=== PATIENT | male | born 1985 | race Caucasian/White ===

== ENCOUNTER 2018-12-11 08:22 | Emergency (ER) | payer SELFPAY ==
[2018-12-11 08:28] VITALS: BMI 38.0
--- NOTE | 2018-12-11 08:46 | PDOC ---
History of Present Illness - General Chief Complaint: Sore Throat Stated Complaint: SORE THROAT Time Seen by Provider: 12/11/18 08:28 History Source: Patient (Patient walked in complaining of few days of swelling on the right side of the neck for few days. 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, [employer], smokes Marijuana x 3 /day .) Exam Limitations: No Limitations - History of Present Illness Is this a multiple visit Asthma Patient?: No Timing/Duration: other (Few days) Severity: mild, moderate Associated Symptoms: reports: cough Aspirin Received prior to arrival: Yes: no aspirin today Past History - Travel Traveled outside of the country in the last 30 days: No Close contact w/someone who was outside of country & ill: No - Past Medical History Allergies/Adverse Reactions: Allergies Allergy/AdvReac Type Severity Reaction Status Date / Time No Known Allergies Allergy Verified 12/11/18 08:24 Home Medications: Ambulatory Orders Amoxicillin/Potassium Clav [Augmentin 875-125 Tablet] 1 each PO BID #14 tablet 12/11/18 COPD: No Other medical history: Denied any significant PMH. Did not see an MD for at least 8 years. - Family Disease History Family Disease History: Other: Father (Pancreas Cancer) - Suicide/Smoking/Psychosocial Hx Smoking History: Never smoked Have you smoked in the past 12 months: Yes Number of Cigarettes Smoked Daily: 20 'Breaking Loose' booklet given: 11/06/13 Hx Alcohol Use: No Drug/Substance Use Hx: Yes (marijuana) Review of Systems - Review of Systems Able to Perform ROS?: Yes Is the patient limited Spanish proficient: Yes Constitutional: Yes: Symptoms Reported, Malaise HEENTM: Yes: Symptoms Reported, See HPI, Other (Swelling on the right side of the neck) Respiratory: Yes: Cough Cardiac (ROS): No: Symptoms Reported, See HPI, Chest Pain, Edema, Irregular Heart Rate, Lightheadedness, Palpitations, Syncope, Chest Tightness, Other ABD/GI: No: Symptoms Reported, See HPI, Abdominal Distended, Abd. Pain w/ defecation, Blood Streaked Bowels, Constipated, Diarrhea, Difficulty Swallowing , Nausea, Poor Appetite, Poor Fluid Intake, Rectal Bleeding, Vomiting, Indigestion, Abdominal cramping, Tarry Stools, Other All Other Systems: Reviewed and Negative *Physical Exam - Vital Signs Last Vital Signs Temp Pulse Resp BP Pulse Ox 98.1 F 79 18 142/98 100 12/11/18 08:23 12/11/18 08:23 12/11/18 08:23 12/11/18 08:23 12/11/18 08:23 - Physical Exam General Appearance: Yes: Nourished, Appropriately Dressed, Mild Distress HEENT: positive: JACOB, Tonsillar Erythema (Mild erythema , no exudate). 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 NML intact, Fully Oriented, Alert, Normal Mood/ Affect ED Treatment Course - LABORATORY CBC & Chemistry Diagram: 12/11/18 09:00 12/11/18 09:00 - Consult/PCP Case discussed with consulting physician: Jonathan Haji Medical Decision Making - Medical Decision Making Based on initial presentation, suspicion for a mass, vs adenopathy, blood work , immaging ordered US reported septated mass CT ordered Discussed with dr Evangelista Called Interventional Radiologist Hospitalist paged 12/11/18 11:30 12/11/18 12:[address] Haji he gave two options of care for this patient care - To be transfered to [facility] , interventional radiologist & atbc -To start iv atbc here and out patient and to see the patient in the office tomorrow Patient refused to be transfered to [facility] by ambulance, agreed to plan 2 to take atbc and to follow with Dr Haji in the office *DC/Admit/Observation/Transfer Diagnosis at time of Disposition: Mass in neck, Adenopathy, cervical - Discharge Dispostion Disposition: HOME Condition at time of disposition: Stable Decision to Admit order: No - Prescriptions Prescriptions: Amoxicillin/Potassium Clav [Augmentin 875-125 Tablet] 1 each PO BID #14 tablet - Referrals Referrals: Jonathan Haji MD [Staff Physician] - - Patient Instructions Additional Instructions: Take antibiotics daily, See Dr Haji in the office tomorrow at 12 noon as discussed Return to ER if fever, chills , trouble breathing - Post Discharge Activity
[2018-12-11 09:31] LABS: BASO % 0.5 % (0-2.0); EOS % 2.6 % (0-4.5); HEMATOCRIT 47.8 % (35.4-49); LYMPH % 13.4 % (8-40); MCH 30.7 pg (25.7-33.7); MCHC 33.4 g/dl (32.0-35.9); MEAN CELL VOLUME 91.9 fl (80-96); MEAN PLT VOLUME 7.8 fl (7.5-11.1); NEUT % 77.5 % (42.8-82.8); PLATELET COUNT 325 K/MM3 (134-434); RBC 5.21 M/mm3 (4.00-5.60); WHITE BLOOD COUNT 15.6 K/mm3 (4.0-10.8)
[2018-12-11] MEDS ORDERED: SODIUM CHLORIDE 1,000 ML IV SCH (10:45)
[2018-12-11 11:20] LABS: ALBUMIN 4.1 g/dl (3.4-5.0); BLOOD UREA NITROGEN 15.9 mg/dL (7-18); CALCIUM 9.4 mg/dL (8.5-10.1); CREATININE 0.8 mg/dL (0.55-1.3); POTASSIUM 4.1 mmol/L (3.5-5.1); TOT PROT 7.6 g/dl (6.4-8.2)
[2018-12-11] MEDS ORDERED: CEFTRIAXONE 1,000 MG in DEXTROSE 5%-WATER - 50 ML IVPB ONE (12:03)
[2018-12-11] MEDS ORDERED: cefTRIAXone SODIUM 1 GM VIAL ONE (12:05)
[2018-12-11 12:06] VITALS: BP 136/92; PULSE 74; TEMP 98.3
== END 2018-12-11 12:45 | disposition home or self-care (01) ==
LOC: FER 08:22
PROC: 3E03329 Introduction of Other Anti-infective into Peripheral Vein, Percutaneous Approach (ICD-10-PCS; principal; 2018-12-11)
PROC: 3E0337Z Introduction of Electrolytic and Water Balance Substance into Peripheral Vein, Percutaneous Approach (ICD-10-PCS; 2018-12-11)
DX: R22.1 Localized swelling, mass and lump, neck (principal); R59.9 Enlarged lymph nodes, unspecified
CPT/HCPCS: 36415; 70491-TC; 76536-TC; 80053; 84443; 85025; 86308; 87040; 87070; 87880; 99282-25; J7030